=== PATIENT | female | born 1985 | race Two or more races ===

== ENCOUNTER 2017-01-28 09:30 | Emergency (ER) | payer OTHER ==
[2017-01-28 09:39] VITALS: TEMP 98; BMI 40.0
[2017-01-28] MEDS ORDERED: SODIUM CHLORIDE 1,000 ML IV STA ×2 (10:08→11:49)
[2017-01-28] MEDS ORDERED: ONDANSETRON 4 MG/2 ML VIAL IVPUSH ONE (10:08)
--- NOTE | 2017-01-28 10:08 | PDOC ---
History of Present Illness - General History Source: Patient Exam Limitations: No Limitations - History of Present Illness Initial Comments: 01/28/17 10:16 The patient is a 31 year old female, with a significant past medical history of HTN (on meds), who presents to the emergency department with abdominal pain, nausea, vomit and diarrhea for the past 2 days. She states that this past Saturday she attended a BBQ and started vomiting that same night. She reports that her abdominal pain is localized on the mid epigastric region, ranging from mild to moderate, she denies any radiation or modifying factors. She states that she has had multiple episodes of vomit that are nonbilious and nonbloody in nature. She also states that she had 1 episode of diarrhea today that was nonbloody in nature. The patient denies chest pain, shortness of breath, headache and dizziness. Denies fever, chills, and constipation. Denies dysuria, frequency, urgency and hematuria. LMP: 01/2017 Allergies: None Past surgical history: None reported Social history: Cigarette use (1 pack a week) <Shady Carballo - Last Filed: 01/28/17 13:42> - General History Source: Patient, Old Records Exam Limitations: No Limitations <Alisa Linton - Last Filed: 01/28/17 13:58> - General Chief Complaint: Vomiting/Diarrhea Stated Complaint: VOMITING Time Seen by Provider: 01/28/17 10:01 Past History <Shady Carballo - Last Filed: 01/28/17 13:42> - Past Medical History Asthma: Yes HTN: Yes - Immunization History Immunization Up to Date: Yes - Psycho/Social/Smoking Cessation Hx Anxiety: No Suicidal Ideation: No Smoking Status: Yes Smoking History: Current every day smoker Have you smoked in the past 12 months: Yes Number of Cigarettes Smoked Daily: 2 Information on smoking cessation initiated: Yes 'Breaking Loose' booklet given: 01/28/17 Hx Alcohol Use: No Drug/Substance Use Hx: No Substance Use Type: None <Alisa Linton - Last Filed: 01/28/17 13:58> - Past Medical History Allergies/Adverse Reactions: Allergies Allergy/AdvReac Type Severity Reaction Status Date / Time Penicillins AdvReac Severe Rash Verified 01/28/17 09:35 Home Medications: Ambulatory Orders Amlodipine Besylate 10 mg PO DAILY 01/28/17 Hydrochlorothiazide [Hctz -] 0 mg PO DAILY 01/28/17 Review of Systems - Review of Systems Able to Perform ROS?: Yes Comments:: 01/28/17 10:16 GENERAL/CONSTITUTIONAL: No fever or chills. No weakness. HEAD, EYES, EARS, NOSE AND THROAT: No change in vision. No ear pain or discharge. No sore throat. CARDIOVASCULAR: No chest pain or shortness of breath RESPIRATORY: No cough, wheezing, or hemoptysis. GASTROINTESTINAL: (+) Abdominal pain, Nausea, vomiting, diarrhea. No constipation. GENITOURINARY: No dysuria, frequency, or change in urination. MUSCULOSKELETAL: No joint or muscle swelling or pain. No neck or back pain. SKIN: No rash NEUROLOGIC: No headache, vertigo, loss of consciousness, or change in strength/ sensation. ENDOCRINE: No increased thirst. No abnormal weight change HEMATOLOGIC/LYMPHATIC: No anemia, easy bleeding, or history of blood clots. ALLERGIC/IMMUNOLOGIC: No hives or skin allergy. <Shady Carballo - Last Filed: 01/28/17 13:42> *Physical Exam - Vital Signs Last Vital Signs Temp Pulse Resp BP Pulse Ox 98.0 F 78 18 156/106 100 01/28/17 09:36 01/28/17 09:36 01/28/17 09:36 01/28/17 09:36 01/28/17 09:36 - Physical Exam Comments: 01/28/17 10:16 GENERAL: Awake, alert, and fully oriented, in no acute distress HEAD: No signs of trauma, normocephalic, atraumatic EYES: PERRLA, EOMI, sclera anicteric, conjunctiva clear ENT: Auricles normal inspection, hearing grossly normal, nares patent, oropharynx clear without exudates. Moist mucosa NECK: Normal ROM, supple, no lymphadenopathy, JVD, or masses LUNGS: No distress, speaks full sentences, clear to auscultation bilaterally HEART: Regular rate and rhythm, normal S1 and S2, no murmurs, rubs or gallops, peripheral pulses normal and equal bilaterally. ABDOMEN: (+) Epigastric tenderness, right upper quadrant tenderness with no rebound or guarding. Obese abdomen. Soft, normoactive bowel sounds. No masses EXTREMITIES: Normal inspection, Normal range of motion, no edema. No clubbing or cyanosis. NEUROLOGICAL: Cranial nerves II through XII grossly intact. Normal speech, normal gait, no focal sensorimotor deficits SKIN: Warm, Dry, normal turgor, no rashes or lesions noted. <Shady Carballo Whit - Last Filed: 01/28/17 13:42> - Vital Signs Last Vital Signs Temp Pulse Resp BP Pulse Ox 98.0 F 78 18 156/106 100 01/28/17 09:36 01/28/17 09:36 01/28/17 09:36 01/28/17 09:36 01/28/17 09:36 <Alisa Linton - Last Filed: 01/28/17 13:58> ED Treatment Course - LABORATORY CBC & Chemistry Diagram: 01/28/17 10:21 01/28/17 10:21 - RADIOLOGY Radiograph Interpretation: 01/28/17 13:42 Abdominal ultrasound Reviewed by: Dr. Jesús Frazier Impression: Mild hepatomegaly, otherwise normal abdominal sonogram. <DashawncarmeloShady - Last Filed: 01/28/17 13:42> - LABORATORY CBC & Chemistry Diagram: 01/28/17 10:21 01/28/17 10:21 <Alisa Linton - Last Filed: 01/28/17 13:58> Medical Decision Making - Medical Decision Making 01/28/17 10:09 31-year-old female with history of hypertension presents to the emergency Department with complaints of 2 day history of epigastric pain, nausea and vomiting and diarrhea times one this morning. Differential diagnosis includes but is not limited to: Acute gastroenteritis, colitis, pancreatitis, cholelithiasis/acute cholecystitis, dehydration, electrolyte abnormality, toxic/ metabolic derangement. Plan: 1. Labs 2. Antiemetics 3. IV fluids for hydration 4. Observe and reevaluate 01/28/17 13:53 Addendum: The labs were reviewed and are noted in the EMR. The patient was given IV fluids and antiemetics and feels improved. I have discussed the patient 's test results with her. She wants to go home. I did advise the patient to follow-up with primary care physician by the end of the week. I have also advised the patient to return to the emergency department her symptoms persist, worsen, or new symptoms arise. <Alisa Linton - Last Filed: 01/28/17 13:58> *DC/Admit/Observation/Transfer - Attestations Scribe Attestion: 01/28/17 10:16 Documentation prepared by Shady Carballo, acting as medical dosimetrist for Alisa Linton MD <Shady Carballo - Last Filed: 01/28/17 13:42> - Discharge Dispostion Admit: No - Attestations Physician Attestion: 01/28/17 10:10 I, Dr. Alisa Linton, attest that the scribes documentation that appears above has been prepared under my direction and personally reviewed by me in its entirety. I confirmed that the note above accurately reflects all work, treatment, procedures, and medical decision-making performed by me. <Alisa Linton - Last Filed: 01/28/17 13:58> Diagnosis at time of Disposition: Nausea and vomiting, Epigastric pain - Discharge Dispostion Disposition: HOME Condition at time of disposition: Stable - Referrals Referrals: Alvin De La Torre MD [Primary Care Provider] - - Patient Instructions Printed Discharge Instructions: DI for Abdominal Pain-Adult Additional Instructions: Follow up with your primary care physician within the next week and return to the emergency department if your symptoms persist, worsen, or new symptoms arise.
[2017-01-28] MEDS ORDERED: ONDANSETRON 4 MG/2 ML VIAL ONE (10:23)
[2017-01-28 10:29] LABS: EOSINOPHIL 1.2 % (0-4.5); MCH 28.4 pg (25.7-33.7); MCHC 33.2 g/dl (32.0-36.0); MEAN CELL VOLUME 85.5 fl (80-96); MEAN PLT VOLUME 8.8 fl (7.5-11.1); NEUTROPHILS 69.4 % (42.8-82.8); PLATELET COUNT 213 K/MM3 (134-434); RDW 13.7 % (11.6-15.6); WHITE BLOOD COUNT 8.8 K/mm3 (4.0-10.0)
[2017-01-28 10:52] LABS: URINE APPEARANCE CLEAR; URINE BILIRUBIN NEGATIVE (NEGATIVE); URINE COLOR LTYELLOW; URINE GLUCOSE (UA) NEGATIVE (NEGATIVE); URINE KETONE NEGATIVE (NEGATIVE); URINE NITRITE NEGATIVE (NEGATIVE); URINE PROTEIN NEGATIVE (NEGATIVE); URINE UROBILINOGEN NEGATIVE E.U./dl (0.2-1.0)
[2017-01-28 10:54] LABS: URINE BLOOD 2+ (NEGATIVE); URINE LEUK ESTERASE 1+ (NEGATIVE)
[2017-01-28 10:56] LABS: ALBUMIN 3.4 g/dl (3.4-5.0); ALK PHOS 75 U/L (45-117); ANION GAP 6 (8-16); BILIRUBIN,TOTAL 0.6 mg/dL (0.2-1.0); CALCIUM 8.9 mg/dL (8.5-10.1); CO2 26 mmol/L (21-32); CREATININE 0.7 mg/dL (0.55-1.02); GLUCOSE,RANDOM 87 mg/dL (74-106); PHOSPHOROUS 3.1 mg/dL (2.5-4.9); SGOT/AST 15 U/L (15-37); SGPT/ALT 26 U/L (12-78); TOT PROT 6.6 g/dl (6.4-8.2)
[2017-01-28 11:01] LABS: URINE MUCUS RARE; URINE RBC 3 /hpf (0-3); URINE WBC 5 /hpf (3-5)
[2017-01-28] MEDS ORDERED: FAMOTIDINE 20 MG/50 ML IVPB 50 ML IVPB ONE ×2 (11:49→12:06)
[2017-01-28 14:12] VITALS: BP 151/97; PULSE 64
== END 2017-01-28 14:12 | disposition home or self-care (01) ==
LOC: JER 09:30
PROC: 3E0337Z Introduction of Electrolytic and Water Balance Substance into Peripheral Vein, Percutaneous Approach (ICD-10-PCS; principal; 2017-01-28)
PROC: 3E033GC Introduction of Other Therapeutic Substance into Peripheral Vein, Percutaneous Approach (ICD-10-PCS; 2017-01-28)
DX: R10.13 Epigastric pain (principal); I10 Essential (primary) hypertension
CPT/HCPCS: 36415; 76700-TC; 80053; 81003; 81015; 83690; 83735; 84100; 84703; 85025; 96361; 96365; 96375; 99282-25

== ENCOUNTER 2017-02-20 18:03 | Emergency (ER) | payer SELFPAY ==
[2017-02-20 18:09] VITALS: BMI 40.0
--- NOTE | 2017-02-20 18:13 | PDOC ---
History of Present Illness - General Chief Complaint: Back Pain Stated Complaint: PAIN Time Seen by Provider: 02/20/17 18:12 - History of Present Illness Initial Comments: 02/20/17 18:19 Patient is a 31-year-old female past medical history of anxiety, hypertension presents to the emergency department today complaining of right upper back pain since this morning. She rates the pain a 10 out of 10. She used icy hot today which helps. She states that the pain is worse with movement and it feels like someone is stabbing her in the back. She said he radiates to her chest and she feels short of breath. The pain does not radiate to the left side. Denies fever , chills, nausea, vomiting, palpitations, edema, wheezing, frequency urgency and dysuria. Past History - Travel Traveled outside of the country in the last 30 days: No Close contact w/someone who was outside of country & ill: No - Past Medical History Allergies/Adverse Reactions: Allergies Allergy/AdvReac Type Severity Reaction Status Date / Time Penicillins AdvReac Severe Rash Verified 02/20/17 18:07 Home Medications: Ambulatory Orders Amlodipine Besylate 10 mg PO DAILY 01/28/17 Hydrochlorothiazide [Hctz -] 0 mg PO DAILY 01/28/17 Valerian Root [Valerian] 530 mg PO ASDIR 02/20/17 Asthma: Yes HTN: Yes - Immunization History Immunization Up to Date: Yes - Psycho/Social/Smoking Cessation Hx Anxiety: No Suicidal Ideation: No Smoking Status: Yes Smoking History: Never smoked Have you smoked in the past 12 months: Yes Number of Cigarettes Smoked Daily: 2 Information on smoking cessation initiated: No 'Breaking Loose' booklet given: 01/28/17 Hx Alcohol Use: No Drug/Substance Use Hx: No Substance Use Type: None Review of Systems - Review of Systems Able to Perform ROS?: Yes Is the patient limited Portuguese proficient: No Constitutional: No: Chills, Fever, Malaise, Weakness Respiratory: Yes: Shortness of Breath. No: Cough, Wheezing Cardiac (ROS): Yes: Chest Pain. No: Lightheadedness, Palpitations ABD/GI: No: Diarrhea, Nausea, Vomiting : No: Burning, Dysuria, Frequency Musculoskeletal: Yes: Back Pain (R upper back), Muscle Pain All Other Systems: Reviewed and Negative *Physical Exam - Vital Signs Last Vital Signs Temp Pulse Resp BP Pulse Ox 98.2 F 77 20 160/100 99 02/20/17 18:05 02/20/17 18:05 02/20/17 18:05 02/20/17 18:05 02/20/17 18:05 - Physical Exam General Appearance: Yes: Nourished, Appropriately Dressed, Obese Neck: positive: Trachea midline, Supple. negative: Tender, Rigid, Decreased range of motion Respiratory/Chest: positive: Lungs Clear, Normal Breath Sounds. negative: Respiratory Distress, Accessory Muscle Use, Rales, Rhonchi, Wheezing Cardiovascular: positive: Regular Rhythm, Regular Rate, S1, S2 (present). negative: Murmur Gastrointestinal/Abdominal: positive: Normal Bowel Sounds, Flat, Soft. negative : Tender, Guarding, Rebound Musculoskeletal: positive: Muscle Spasm (R trapezius, TTP with radiating pain to the chest. Palpable knot). 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 NML intact, Fully Oriented, Alert, Normal Mood/ Affect, Normal Response, Motor Strength 5/5 Heart Score/ECG Review - History History: Slightly suspicious - Electrocardiogram EKG: Normal - Age Age: </= 45 - Risk Factors Risk Factors Heart Score: Yes Hx Hypertension Based on the list above the patient has:: 1-2 risk factors - Troponin Troponin: </= normal limit - Score Heart Score - Total: 1 ED Treatment Course - LABORATORY CBC & Chemistry Diagram: 02/20/17 18:30 Medical Decision Making - Medical Decision Making 02/20/17 18:31 Patient is a 31-year-old female past medical history of anxiety, hypertension presents to the emergency department today complaining of right upper back pain since this morning. Most likely a muscle spasm, however given the amount of pain she is in and the radiation to the chest we'll rule out cardiac cause. We' ll also obtain urine to rule out stone 1. CMP, UA, Cardiac profile 2. EKG 3. torodol 4. re-evaluate 02/20/17/ 18:42 EKG services in normal sinus rhythm with a rate of 78 bpm QT 380. Normal axis. No acute ST-T wave changes. Overall normal EKG. 02/20/17 19:00 Case discussed with and he Mandy Rooney who accepted signout. Patient will follow up on labs and evaluate her pain.
[2017-02-20] MEDS ORDERED: KETOROLAC TROMETHAMINE 30 MG/1 ML VIAL IM ONE ×2 (18:28→19:37)
[2017-02-20] MEDS ORDERED: KETOROLAC TROMETHAMINE 30 MG/1 ML VIAL ONE ×2 (18:29→19:47)
[2017-02-20 18:49] LABS: URINE APPEARANCE CLOUDY; URINE BILIRUBIN NEGATIVE (NEGATIVE); URINE COLOR YELLOW; URINE GLUCOSE (UA) NEGATIVE (NEGATIVE); URINE KETONE NEGATIVE (NEGATIVE); URINE NITRITE NEGATIVE (NEGATIVE); URINE PROTEIN NEGATIVE (NEGATIVE); URINE UROBILINOGEN NEGATIVE mg/dL (0.2-1.0)
[2017-02-20 18:50] LABS: URINE BLOOD 2+ (NEGATIVE); URINE LEUK ESTERASE 3+ (NEGATIVE)
[2017-02-20 19:05] LABS: ALBUMIN 3.7 g/dl (3.4-5.0); ANION GAP 6 (8-16); BILIRUBIN,TOTAL 0.5 mg/dL (0.2-1.0); CALCIUM 8.5 mg/dL (8.5-10.1); CO2 24 mmol/L (21-32); CREATININE 0.7 mg/dL (0.55-1.02); GLUCOSE,RANDOM 81 mg/dL (74-106); SGOT/AST 12 U/L (15-37); SGPT/ALT 18 U/L (12-78)
[2017-02-20 19:06] LABS: ALK PHOS 79 U/L (45-117); TROPONIN I < 0.02 ng/ml (0.00-0.05)
[2017-02-20 19:22] LABS: URINE BACTERIA RARE /hpf (NONE SEEN); URINE MUCUS RARE; URINE RBC 16 /hpf (0-3); URINE WBC 42 /hpf (3-5)
[2017-02-20 19:25] VITALS: BP 158/70; PULSE 68; TEMP 98.3
--- NOTE | 2017-02-20 19:43 | PDOC ---
*Physical Exam - Vital Signs Last Vital Signs Temp Pulse Resp BP Pulse Ox 98.3 F 68 20 158/70 98 02/20/17 18:53 02/20/17 18:53 02/20/17 18:53 02/20/17 18:53 02/20/17 18:53 - Physical Exam Comments: 02/20/17 19:38 Sign-out received from outgoing ER provider Nirav. Pt interviewed and examined. Ancillary studies reviewed. Awaiting labs. Patient reassessed after administration of 30 mg IM Toradol, continues to complain of "some pain" to right upper back. additional 30 mg toradol given ED Treatment Course - LABORATORY CBC & Chemistry Diagram: 02/20/17 18:30 - ADDITIONAL ORDERS Additional order review: Laboratory Results 02/20/17 02/20/17 02/20/17 18:30 18:30 18:30 Sodium 139 Potassium 4.1 Chloride 109 H Carbon Dioxide 24 Anion Gap 6 L BUN 13 Creatinine 0.7 Creat Clearance w eGFR > 60 Random Glucose 81 Calcium 8.5 Total Bilirubin 0.5 AST 12 L ALT 18 D Alkaline Phosphatase 79 Creatine Kinase 153 Troponin I < 0.02 Total Protein 7.0 Albumin 3.7 Urine Color Urine Appearance Urine pH Urine Protein Urine Glucose (UA) Urine Ketones Urine Blood Urine Nitrite Urine Bilirubin Urine Urobilinogen Ur Leukocyte Esterase Urine RBC Urine WBC Ur Epithelial Cells Urine Bacteria Urine Mucus Urine HCG, Qual Negative 02/20/17 18:30 Sodium Potassium Chloride Carbon Dioxide Anion Gap BUN Creatinine Creat Clearance w eGFR Random Glucose Calcium Total Bilirubin AST ALT Alkaline Phosphatase Creatine Kinase Troponin I Total Protein Albumin Urine Color Yellow Urine Appearance Cloudy Urine pH 5.0 Urine Protein Negative Urine Glucose (UA) Negative Urine Ketones Negative Urine Blood 2+ H Urine Nitrite Negative Urine Bilirubin Negative Urine Urobilinogen Negative Ur Leukocyte Esterase 3+ H D Urine RBC 16 Urine WBC 42 Ur Epithelial Cells Many Urine Bacteria Rare Urine Mucus Rare Urine HCG, Qual - Medications Given in the ED: ED Medications Discontinued Medications Generic Name Dose Route Start Last Admin Trade Name Freq PRN Reason Stop Dose Admin Ketorolac Tromethamine 30 mg 02/20/17 18:28 02/20/17 18:36 Toradol Injection - IM 02/20/17 18:29 30 mg ONCE ONE Administration *DC/Admit/Observation/Transfer Diagnosis at time of Disposition: UTI (urinary tract infection) Qualifiers: Urinary tract infection type: site unspecified Hematuria presence: without hematuria Qualified Code(s): N39.0 - Urinary tract infection, site not specified Back pain Qualifiers: Back pain location: back pain in other location Chronicity: acute Qualified Code(s): M54.9 - Dorsalgia, unspecified - Discharge Dispostion Disposition: HOME Condition at time of disposition: Stable Admit: No - Prescriptions Prescriptions: Nitrofurantoin Monohyd/M-Cryst [Macrobid -] 100 mg PO BID #14 capsule Naproxen [Naprosyn -] 500 mg PO BID #14 tablet Diazepam [Valium] 5 mg PO HS PRN #7 tablet MDD 1 PRN Reason: Muscle Spasms - Referrals Referrals: Alvin De La Torre MD [Primary Care Provider] - Henrry Hamm MD [Staff Physician] - - Patient Instructions Printed Discharge Instructions: DI for Back Spasm Additional Instructions: Please take medications as prescribed. As discussed, do NOT drive or operate machinery while taking Valium. Stop taking any other medications at home. Follow up with orthopedics (referral provided) within the next week if symptoms persist. If you experience any shortness of breath, chest pain, palpitations, fever, vomiting, or any new or worsening symptoms, please return to the ER.
--- NOTE | 2017-02-21 13:09 | EKG ---
Test Reason : Blood Pressure : / mmHG Vent. Rate : 078 BPM Atrial Rate : 078 BPM P-R Int : 166 ms QRS Dur : 076 ms QT Int : 380 ms P-R-T Axes : 019 022 018 degrees QTc Int : 433 ms NORMAL SINUS RHYTHM MINIMAL VOLTAGE CRITERIA FOR LVH, MAY BE NORMAL VARIANT BORDERLINE ECG WHEN COMPARED WITH ECG OF 11-APR-2010 09:48, NO SIGNIFICANT CHANGE WAS FOUND Confirmed by CHILANGO CHANDLER MD ([id number]) on 02/21/2017 1:08:57 PM Referred By: Confirmed By:CHILANGO CHANDLER MD
== END 2017-02-20 20:57 | disposition home or self-care (01) ==
LOC: JER 18:03
PROC: 3E0233Z Introduction of Anti-inflammatory into Muscle, Percutaneous Approach (ICD-10-PCS; principal; 2017-02-20)
DX: N39.0 Urinary tract infection, site not specified (principal); M54.9 Dorsalgia, unspecified; I10 Essential (primary) hypertension; F41.9 Anxiety disorder, unspecified; J45.909 Unspecified asthma, uncomplicated; Z72.0 Tobacco use
CPT/HCPCS: 36415; 80053; 81003; 81015; 82550; 82553; 84484; 84703; 87086; 93005; 93010; 99283-25

== ENCOUNTER 2017-04-10 14:22 | Emergency (ER) | payer OTHER ==
[2017-04-10 14:35] VITALS: PULSE 92; TEMP 99.2; BMI 38.2
[2017-04-10] MEDS ORDERED: KETOROLAC TROMETHAMINE 60 MG/2 ML VIAL IM ONE (15:12)
[2017-04-10] MEDS ORDERED: KETOROLAC TROMETHAMINE 60 MG/2 ML VIAL ONE (15:16)
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
[2017-04-10 16:27] VITALS: BP 143/92
== END 2017-04-10 16:51 | disposition home or self-care (01) ==
LOC: JERFT 14:22
PROC: 3E0233Z Introduction of Anti-inflammatory into Muscle, Percutaneous Approach (ICD-10-PCS; principal; 2017-04-10)
DX: R52 Pain, unspecified (principal); V58.6XXA Passenger in pick-up truck or van injured in noncollision transport accident in traffic accident, initial encounter; Y92.414 Local residential or business street as the place of occurrence of the external cause; Y93.89 Activity, other specified; Y99.8 Other external cause status
CPT/HCPCS: 71020-TC; 72050-TC; 72100-TC; 73590-TC-LT; 73610-TC-LT; 73630-TC-LT; 84703; 99281-25

== ENCOUNTER 2018-01-14 16:50 | Emergency (ER) | payer OTHER ==
[2018-01-14 17:09] VITALS: PULSE 88; TEMP 98.4; BMI 40.9
--- NOTE | 2018-01-14 17:13 | PDOC ---
Rapid Medical Evaluation Chief Complaint: Headache Time Seen by Provider: 01/14/18 17:05 Medical Evaluation: Allergies Allergy/AdvReac Type Severity Reaction Status Date / Time Penicillins AdvReac Severe Rash Verified 01/14/18 17:05 01/14/18 17:05 I have performed a brief in-person evaluation of this patient. The patient presents with a chief complaint of: headache since Saturday - has some visual changes, taking Motrin and HTN med, Tylenol w2ith no resolve. States is " the worst headache ever had" Pertinent physical exam findings: squinting eyes/ photophobic , I have ordered the following: EKG, CBC, CMP, PT/INR/ UA/ UCG The patient will proceed to the ED for further evaluation. 01/14/18 17:13 01/14/18 17:15
[2018-01-14] MEDS ORDERED: METOCLOPRAMIDE HCL INJECTION 10 MG/2 ML VIAL IVPUSH ONE (17:16)
[2018-01-14] MEDS ORDERED: KETOROLAC TROMETHAMINE 30 MG/1 ML VIAL IVPUSH ONE (17:17)
[2018-01-14] MEDS ORDERED: METOCLOPRAMIDE HCL INJECTION 10 MG/2 ML VIAL ONE (17:35)
[2018-01-14] MEDS ORDERED: KETOROLAC TROMETHAMINE 30 MG/1 ML VIAL ONE (17:35)
--- NOTE | 2018-01-14 18:00 | PDOC ---
History of Present Illness - General History Source: Patient Exam Limitations: No Limitations - History of Present Illness Initial Comments: 01/14/18 20:28 The patient is a 32 year old morbidly obese female with a significant PMH of headaches who presents to the emergency department with a headache for the past 3 days with associated high blood pressure, sore throat, one episode of nonbloody nonbilious vomit, and blurry vision. The patient has been taking motrin and hypertension medications with no relief. The patient states she had a history of headaches back in 2011 for which she had significant work up at the time but has not followed up with the neurologist (Dr. Pitts) since. The patient's blood pressure returned to 127/90 here in the ER. The patient denies chest pain, shortness of breath and dizziness. Denies fever, chills, nausea, diarrhea and constipation. Denies dysuria, frequency, urgency and hematuria. Allergies: penicillins Past surgical history: None reported. Social history: No reported alcohol, drug, or cigarette use. PCP: Dr. Neal <Courtney Roblero - Last Filed: 01/14/18 20:28> <Stephanie Samano - Last Filed: 01/14/18 22:19> - General Chief Complaint: Headache Stated Complaint: HEADACHE Time Seen by Provider: 01/14/18 17:05 Past History <Courtney Roblero - Last Filed: 01/14/18 20:28> - Past Medical History Asthma: Yes (COPD) HTN: Yes - Immunization History Immunization Up to Date: Yes - Suicide/Smoking/Psychosocial Hx Smoking Status: Yes Smoking History: Current every day smoker Have you smoked in the past 12 months: Yes Number of Cigarettes Smoked Daily: 5 Information on smoking cessation initiated: No 'Breaking Loose' booklet given: 01/28/17 Hx Alcohol Use: No Drug/Substance Use Hx: No Substance Use Type: None <Stephanie Samano - Last Filed: 01/14/18 22:19> - Past Medical History Allergies/Adverse Reactions: Allergies Allergy/AdvReac Type Severity Reaction Status Date / Time Penicillins AdvReac Severe Rash Verified 01/14/18 17:05 Home Medications: Ambulatory Orders Amlodipine Besylate 10 mg PO DAILY 01/28/17 Hydrochlorothiazide [Hctz -] 0 mg PO DAILY 01/28/17 Cyclobenzaprine HCl [Flexeril -] 5 mg PO TID PRN #21 tablet 04/10/17 Naproxen [Naprosyn -] 500 mg PO BID #21 tablet 04/10/17 Review of Systems - Review of Systems Able to Perform ROS?: Yes Comments:: 01/14/18 20:35 CONSTITUTIONAL: Absent: fever, no chills, no fatigue EYES: Absent: visual changes ENT: Absent: ear pain, no sore throat CARDIOVASCULAR: Absent: chest pain, no palpitations RESPIRATORY: Absent: cough, no SOB GI: Absent: abdominal pain, no nausea, no vomiting, no constipation, no diarrhea GENITOURINARY: Absent: dysuria, no frequency, no hematuria MUSKULOSKELETAL: Absent: back pain, no arthralgia, no myalgia SKIN: Absent: rash NEURO: Absent: Present: headache. <Courtney Roblero - Last Filed: 01/14/18 20:28> *Physical Exam - Vital Signs Last Vital Signs Temp Pulse Resp BP Pulse Ox 98.4 F 88 18 127/91 100 01/14/18 17:04 01/14/18 17:04 01/14/18 17:04 01/14/18 19:18 01/14/18 17:04 - Physical Exam Comments: 01/14/18 20:35 GENERAL: Well-appearing, well-nourished. No apparent distress. HEENT: Normocephalic, atraumatic. PERRL, EOM intact. No bruits on the neck. CARDIOVASCULAR: Normal S1, S2. Regular rate and rhythm. PULMONARY: Clear to auscultation bilaterally. ABDOMEN: (+) [place] abdomen. Soft, non-tender. EXTREMITIES: Normal ROM in all four extremities. No gross deformities. SKIN: Warm, dry. No rash NEUROLOGICAL: No focal neurological deficits. 5 out of 5 motor strength x4 extremities. No gross sensory deficits. [id number]-[id number] is intact. No pronator drift. No numbness or tingling. No facial droop. No slurred speech. Ambulating with ease. <Courtney Roblero - Last Filed: 01/14/18 20:28> - Vital Signs Last Vital Signs Temp Pulse Resp BP Pulse Ox 98.4 F 88 18 170/110 100 01/14/18 17:04 01/14/18 17:04 01/14/18 17:04 01/14/18 17:04 01/14/18 17:04 <Stephanie Samano - Last Filed: 01/14/18 22:19> ED Treatment Course - LABORATORY CBC & Chemistry Diagram: 01/14/18 17:11 01/14/18 17:11 - ADDITIONAL ORDERS Additional order review: Laboratory Results 01/14/18 01/14/18 01/14/18 17:11 17:11 17:11 PT with INR 12.10 INR 1.07 Sodium 140 Potassium 3.7 Chloride 106 Carbon Dioxide 26 Anion Gap 8 BUN 11 Creatinine 0.8 Creat Clearance w eGFR > 60 Random Glucose 130 H Calcium 8.8 Total Bilirubin 0.2 D AST 17 ALT 27 Alkaline Phosphatase 101 Total Protein 7.3 Albumin 3.7 Urine Color Urine Appearance Urine pH Ur Specific [place] Urine Protein Urine Glucose (UA) Urine Ketones Urine Blood Urine Nitrite Urine Bilirubin Urine Urobilinogen Ur Leukocyte Esterase Urine WBC (Auto) Urine RBC (Auto) Ur Epithelial Cells Urine Mucus Urine HCG, Qual Negative 01/14/18 17:11 PT with INR INR Sodium Potassium Chloride Carbon Dioxide Anion Gap BUN Creatinine Creat Clearance w eGFR Random Glucose Calcium Total Bilirubin AST ALT Alkaline Phosphatase Total Protein Albumin Urine Color Dkyellow Urine Appearance Cloudy Urine pH 5.0 Ur Specific [place] 1.021 Urine Protein 1+ H Urine Glucose (UA) Negative Urine Ketones Trace H Urine Blood 2+ H Urine Nitrite Negative Urine Bilirubin Negative Urine Urobilinogen Negative Ur Leukocyte Esterase 2+ H Urine WBC (Auto) 51 Urine RBC (Auto) 11 Ur Epithelial Cells Many Urine Mucus Moderate Urine HCG, Qual 01/14/18 18:23 Group A Strep Rapid Antigen - Final Throat 01/14/18 17:11 RBC 4.82 MCV 84.7 MCHC 32.6 RDW 13.7 MPV 8.8 Neutrophils % 69.0 Lymphocytes % 23.6 Monocytes % 5.1 Eosinophils % 1.6 Basophils % 0.7 - Medications Given in the ED: ED Medications Discontinued Medications Generic Name Dose Route Start Last Admin Trade Name Freq PRN Reason Stop Dose Admin Diphenhydramine HCl 25 mg 01/14/18 17:16 01/14/18 17:58 Benadryl Injection - IVPB 01/14/18 17:17 25 mg ONCE ONE Administration Ketorolac Tromethamine 30 mg 01/14/18 17:17 01/14/18 19:11 Toradol Injection - IVPUSH 01/14/18 17:18 30 mg ONCE ONE Administration Metoclopramide HCl 10 mg 01/14/18 17:16 01/14/18 17:58 Reglan Injection - IVPUSH 01/14/18 17:17 10 mg ONCE ONE Administration Ondansetron HCl 4 mg 01/14/18 18:33 01/14/18 19:11 Zofran Injection IVPUSH 01/14/18 18:34 4 mg ONCE ONE Administration <Courtney Roblero - Last Filed: 01/14/18 20:28> - LABORATORY CBC & Chemistry Diagram: 01/14/18 17:11 01/14/18 17:11 - Medications Given in the ED: ED Medications Discontinued Medications Generic Name Dose Route Start Last Admin Trade Name Wilianq PRN Reason Stop Dose Admin Diphenhydramine HCl 25 mg 01/14/18 17:16 01/14/18 17:58 Benadryl Injection - IVPB 01/14/18 17:17 25 mg ONCE ONE Administration Metoclopramide HCl 10 mg 01/14/18 17:16 01/14/18 17:58 Reglan Injection - IVPUSH 01/14/18 17:17 10 mg ONCE ONE Administration <Stephanie Samano - Last Filed: 01/14/18 22:19> Medical Decision Making - Medical Decision Making 01/14/18 22:17 32-year-old female with a history of hypertension, presented with 3 days of headache, nausea, sore throat On exam, she has no gross focal neural deficits. She was initially hypertensive but after her Reglan her headache resolved and her systolic blood pressure came down to 120s and she requested discharge home no focal neuro deficits -pt encouraged to f/u with neurology and given referral to Dr Landon <Stephanie Samano - Last Filed: 01/14/18 22:19> *DC/Admit/Observation/Transfer - Attestations Scribe Attestion: 01/14/18 20:36 Documentation prepared by Courtney Roblero, acting as medical transcription for Stephanie Samano MD. <Courtney Roblero - Last Filed: 01/14/18 20:28> <Stephanie Samano - Last Filed: 01/14/18 22:19> Diagnosis at time of Disposition: High blood pressure Qualifiers: Hypertension type: essential hypertension Qualified Code(s): I10 - Essential ( primary) hypertension Headache Qualifiers: Headache type: tension-type Headache chronicity pattern: unspecified pattern Intractability: not intractable Qualified Code(s): G44.209 - Tension-type headache, unspecified, not intractable - Discharge Dispostion Disposition: HOME Condition at time of disposition: Stable - Referrals Referrals: Davidson Neal MD [Primary Care Provider] - Kemal Landon MD [Staff Physician] - - Patient Instructions Printed Discharge Instructions: DI for Headache Additional Instructions: please follow up with the neurologist for your headaches Continue to take your blood pressure medication return for any worsening symptoms
[2018-01-14 18:02] LABS: BASO % 0.7 % (0-2.0); EOS % 1.6 % (0-4.5); HEMATOCRIT 40.8 % (32.4-45.2); HEMOGLOBIN 13.3 GM/dL (10.7-15.3); LYMPH % 23.6 % (8-40); MCH 27.6 pg (25.7-33.7); MCHC 32.6 g/dl (32.0-36.0); MEAN CELL VOLUME 84.7 fl (80-96); MEAN PLT VOLUME 8.8 fl (7.5-11.1); MONO % 5.1 % (3.8-10.2); PLATELET COUNT 275 K/MM3 (134-434); RBC 4.82 M/mm3 (3.60-5.2); RDW 13.7 % (11.6-15.6); WHITE BLOOD COUNT 11.4 K/mm3 (4.0-10.0)
[2018-01-14 18:23] LABS: INR 1.07 (0.82-1.09); PROTHROMBIN TIME (PATIENT) 12.1 SEC (9.7-13.0)
[2018-01-14] MEDS ORDERED: ONDANSETRON 4 MG/2 ML VIAL IVPUSH ONE (18:33)
[2018-01-14 18:49] LABS: ALBUMIN 3.7 g/dl (3.4-5.0); ALK PHOS 101 U/L (45-117); ANION GAP 8 (8-16); BILIRUBIN,TOTAL 0.2 mg/dL (0.2-1.0); BLOOD UREA NITROGEN 11 mg/dL (7-18); CALCIUM 8.8 mg/dL (8.5-10.1); CHLORIDE 106 mmol/L (98-107); CO2 26 mmol/L (21-32); CREATININE 0.8 mg/dL (0.55-1.02); GLUCOSE,RANDOM 130 mg/dL (74-106); POTASSIUM 3.7 mmol/L (3.5-5.1); SGOT/AST 17 U/L (15-37); SGPT/ALT 27 U/L (12-78); SODIUM 140 mmol/L (136-145); TOT PROT 7.3 g/dl (6.4-8.2)
[2018-01-14 18:58] LABS: URINE APPEARANCE CLOUDY; URINE BILIRUBIN NEGATIVE (<2.0 mg/dL); URINE BLOOD 2+ (NEGATIVE); URINE COLOR DKYELLOW; URINE GLUCOSE (UA) NEGATIVE (NEGATIVE); URINE KETONE TRACE (NEGATIVE); URINE NITRITE NEGATIVE (NEGATIVE); URINE UROBILINOGEN NEGATIVE mg/dL (0.2-1.0)
[2018-01-14] MEDS ORDERED: ONDANSETRON 4 MG/2 ML VIAL ONE (19:12)
[2018-01-14 19:15] LABS: URINE LEUK ESTERASE 2+ (NEGATIVE); URINE PROTEIN 1+ (NEGATIVE)
[2018-01-14 19:18] VITALS: BP 127/91
[2018-01-14 20:00] LABS: EPI CELLS MANY /HPF (FEW); URINE MUCUS MODERATE
--- NOTE | 2018-01-15 11:30 | EKG ---
Test Reason : Blood Pressure : / mmHG Vent. Rate : 081 BPM Atrial Rate : 081 BPM P-R Int : 134 ms QRS Dur : 072 ms QT Int : 354 ms P-R-T Axes : 021 049 023 degrees QTc Int : 411 ms POOR DATA QUALITY, INTERPRETATION MAY BE ADVERSELY AFFECTED NORMAL SINUS RHYTHM NORMAL ECG WHEN COMPARED WITH ECG OF 20-FEB-2017 18:53, NO SIGNIFICANT CHANGE WAS FOUND Confirmed by MINH REDDY, PRINCESS ([id number]) on 01/15/2018 11:30:32 AM Referred By: Confirmed By:PRINCESS WILKINSON MD
== END 2018-01-14 20:00 | disposition home or self-care (01) ==
LOC: JER 16:50
PROC: 3E0333Z Introduction of Anti-inflammatory into Peripheral Vein, Percutaneous Approach (ICD-10-PCS; principal; 2018-01-14)
PROC: 3E033GC Introduction of Other Therapeutic Substance into Peripheral Vein, Percutaneous Approach (ICD-10-PCS; 2018-01-14)
PROC: 3E033GC Introduction of Other Therapeutic Substance into Peripheral Vein, Percutaneous Approach (ICD-10-PCS; 2018-01-14)
PROC: 3E033GC Introduction of Other Therapeutic Substance into Peripheral Vein, Percutaneous Approach (ICD-10-PCS; 2018-01-14)
DX: I10 Essential (primary) hypertension (principal); G44.209 Tension-type headache, unspecified, not intractable
CPT/HCPCS: 36415; 80053; 81003; 81015; 84703; 85025; 85610; 87070; 87086; 87430; 93005; 93010; 96374; 96375; 99283-25

== ENCOUNTER 2018-08-20 05:40 | Emergency (ER) | payer OTHER ==
[2018-08-20 06:23] VITALS: PULSE 87; TEMP 97.6; BMI 38.9
--- NOTE | 2018-08-20 07:56 | PDOC ---
"History of Present Illness - History of Present Illness Initial Comments: The patient is a 32 year old female, with a significant PMH of asthma, HTN, and headaches, who presents to the emergency department today complaining of left lower mandibular wisdom tooth pain for 2 days. Patient notes she began experiencing wisdom tooth pain last night, which affected her sleep through the night. She reports taking tylenol, motrin, and excedrin (headaches) without any relief. Patient notes the pain is getting progressively worse, which prompted her visit to the ED today. The patient denies chest pain, shortness of breath, headache and dizziness. Denies fever, chills, nausea, vomit, diarrhea and constipation. Denies dysuria, frequency, urgency and hematuria. Allergies: Penicillins Past surgical history: None reported Social history: No reported PCP: Dr. Neal 08/20/18 08:27 <Xena Meyer - Last Filed: 08/20/18 08:27> - General History Source: Patient Exam Limitations: No Limitations <Sheba Wyatt - Last Filed: 08/22/18 09:32> - General Chief Complaint: Toothache Stated Complaint: TOOTHACHE Time Seen by Provider: 08/20/18 07:21 Past History <Xena Meyer - Last Filed: 08/20/18 08:27> - Past Medical History Asthma: Yes (COPD) HTN: Yes - Immunization History Immunization Up to Date: Yes - Suicide/Smoking/Psychosocial Hx Smoking Status: Yes Smoking History: Current every day smoker Have you smoked in the past 12 months: Yes Number of Cigarettes Smoked Daily: 12 Information on smoking cessation initiated: No 'Breaking Loose' booklet given: 01/28/17 Hx Alcohol Use: No Drug/Substance Use Hx: No Substance Use Type: None <Sheba Wyatt - Last Filed: 08/22/18 09:32> - Past Medical History Allergies/Adverse Reactions: Allergies Allergy/AdvReac Type Severity Reaction Status Date / Time Penicillins AdvReac Severe Rash Verified 08/20/18 06:19 Home Medications: Ambulatory Orders Amlodipine Besylate 10 mg PO DAILY 01/28/17 Hydrochlorothiazide [Hctz -] 0 mg PO DAILY 01/28/17 Cyclobenzaprine HCl [Flexeril -] 5 mg PO TID PRN #21 tablet 04/10/17 Naproxen [Naprosyn -] 500 mg PO BID #21 tablet 04/10/17 Clindamycin [Cleocin -] 300 mg PO TID #21 capsule 08/20/18 Oxycodone HCl/Acetaminophen [Percocet 5-325 mg Tablet -] 1 tab PO Q8H PRN #10 tablet MDD 3 08/20/18 Review of Systems - Review of Systems Comments:: GENERAL/CONSTITUTIONAL: No fever or chills. No weakness. HEAD, EYES, EARS, NOSE AND THROAT: +Left lower mandibular wisdom tooth pain. No change in vision. No ear pain or discharge. No sore throat. CARDIOVASCULAR: No chest pain or shortness of breath. RESPIRATORY: No cough, wheezing, or hemoptysis. GASTROINTESTINAL: No nausea, vomiting, diarrhea or constipation. GENITOURINARY: No dysuria, frequency, or change in urination. MUSCULOSKELETAL: No joint or muscle swelling or pain. No neck or back pain. SKIN: No rash NEUROLOGIC: No headache, vertigo, loss of consciousness, or change in strength/ sensation. ENDOCRINE: No increased thirst. No abnormal weight change. HEMATOLOGIC/LYMPHATIC: No anemia, easy bleeding, or history of blood clots. ALLERGIC/IMMUNOLOGIC: No hives or skin allergy. 08/20/18 08:27 <Xena Meyer - Last Filed: 08/20/18 08:27> *Physical Exam - Vital Signs Last Vital Signs Temp Pulse Resp BP Pulse Ox 97.6 F 87 18 179/115 H 97 08/20/18 06:17 08/20/18 06:17 08/20/18 06:17 08/20/18 06:17 08/20/18 06:17 - Physical Exam Comments: GENERAL: The patient is in no acute distress. HEAD: Normal with no signs of trauma. EYES: PERRLA, EOMI, sclera anicteric, conjunctiva clear. ENT: +Left lower mandibular wisdom tooth eruption. No swelling, erythema, or purulence. Ears normal, nares patent, oropharynx clear without exudates. Moist mucous membranes. NECK: Normal range of motion, supple without lymphadenopathy, JVD, or masses. LUNGS: Breath sounds equal, clear to auscultation bilaterally. No wheezes, and no crackles. HEART:Regular rate and rhythm, normal S1 and S2 without murmur, rub or gallop. ABDOMEN: Soft, nontender, normoactive bowel sounds. No guarding, no rebound. No masses palpable. EXTREMITIES: Normal range of motion, no edema. No clubbing or cyanosis. No erythema, or tenderness. NEUROLOGICAL: Cranial nerves II through XII grossly intact. Normal speech. No focal neurological deficits. MUSCULOSKELETAL: Back non-tender to palpation, no CVA tenderness SKIN: Warm, Dry, normal turgor, no rashes or lesions noted. 08/20/18 08:28 <Xena Meyer - Last Filed: 08/20/18 08:27> - Vital Signs Last Vital Signs Temp Pulse Resp BP Pulse Ox 97.6 F 87 18 179/115 H 97 08/20/18 06:17 08/20/18 06:17 08/20/18 06:17 08/20/18 06:17 08/20/18 06:17 <Sheba Wyatt - Last Filed: 08/22/18 09:32> Moderate Sedation - Procedure Monitoring Vital Signs: Procedure Monitoring Vital Signs Temperature 97.6 F 08/20/18 06:17 Pulse Rate 87 08/20/18 06:17 Respiratory Rate 18 08/20/18 06:17 Blood Pressure 179/115 H 08/20/18 06:17 O2 Sat by Pulse Oximetry (%) 97 08/20/18 06:17 <Xena Meyer - Last Filed: 08/20/18 08:27> - Procedure Monitoring Vital Signs: Procedure Monitoring Vital Signs Temperature 97.6 F 08/20/18 06:17 Pulse Rate 87 08/20/18 06:17 Respiratory Rate 18 08/20/18 06:17 Blood Pressure 179/115 H 08/20/18 06:17 O2 Sat by Pulse Oximetry (%) 97 08/20/18 06:17 <Sheba Wyatt - Last Filed: 08/22/18 09:32> ED Treatment Course - Medications Given in the ED: ED Medications Discontinued Medications Generic Name Dose Route Start Last Admin Trade Name Freq PRN Reason Stop Dose Admin Oxycodone/Acetaminophen 1 combo 08/20/18 07:56 08/20/18 08:14 Percocet 5/325 - PO 08/20/18 07:57 1 combo ONCE ONE Administration <Xena Meyer - Last Filed: 08/20/18 08:27> Medical Decision Making - Medical Decision Making 08/20/18 08:01 Ms Mansfield presents to the ER with a complaint of tooth pain S/p Left mandibular wisdom tooth eruption No fevers or chills No throat pain Will give pain meds Will give Abx (pcn allergic) - clindamycin Will discharge Pt to follow up with a dentist Search Terms: Sarah Mansfield, 1985 Search Date: 08/20/2018 08:01:12 AM The Drug Utilization Report below displays all of the controlled substance prescriptions, if any, that your patient has filled in the last twelve months. The information displayed on this report is compiled from pharmacy submissions to the Department, and accurately reflects the information as submitted by the pharmacies. This report was requested by: Sheba Wyatt | Reference #: [id number] There are no results for the search terms that you entered. 08/22/18 09:32 <Sheba Wyatt - Last Filed: 08/22/18 09:32> *DC/Admit/Observation/Transfer - Attestations Scribe Attestion: Documentation prepared by AMELIA Dubon, acting as regional medical director for Sheba Wyatt MD/DO. 08/20/18 08:28 <Xena Meyer - Last Filed: 08/20/18 08:27> - Discharge Dispostion Decision to Admit order: No <Sheba Wyatt - Last Filed: 08/22/18 09:32> Diagnosis at time of Disposition: Tooth pain - Discharge Dispostion Disposition: HOME Condition at time of disposition: Stable - Prescriptions Prescriptions: Clindamycin [Cleocin -] 300 mg PO TID #21 capsule Oxycodone HCl/Acetaminophen [Percocet 5-325 mg Tablet -] 1 tab PO Q8H PRN #10 tablet MDD 3 PRN Reason: Severe Pain - Referrals Referrals: Santiago Neal [Primary Care Provider] - - Patient Instructions Printed Discharge Instructions: DI for Impacted Tooth, DI for Dental Pain Additional Instructions: Thank you for coming in to the ER today Please be sure to follow up with a dentist If you can not find one, try going to the Dental Urgent Care There several that you can call (they may or may not take insurance) [address], [address], [address] Please return to the ER for fevers or chills, facial swelling Please follow up with your primary care physician - Post Discharge Activity Forms/Work/School Notes: Back to Work"
[2018-08-20 09:18] VITALS: BP 140/100
== END 2018-08-20 08:42 | disposition home or self-care (01) ==
LOC: JER 05:40
DX: K08.89 Other specified disorders of teeth and supporting structures (principal); I10 Essential (primary) hypertension; R51 Headache; Z88.0 Allergy status to penicillin
CPT/HCPCS: 99281-25

== ENCOUNTER 2019-04-20 22:27 | Emergency (ER) | payer OTHER ==
[2019-04-20 22:48] VITALS: BMI 40.9
--- NOTE | 2019-04-20 23:32 | PDOC ---
History of Present Illness - General Chief Complaint: Chest Pain Stated Complaint: CHEST PAIN Time Seen by Provider: 04/20/19 23:31 History Source: Patient Exam Limitations: No Limitations - History of Present Illness Initial Comments: 33 year old female with PMH HTN, COPD, nicotine use, obesity presented to ED for right arm pain/swelling radiating to her right chest since this AM. Pt denied shortness of breath, MACKAY, palpitations, fever, cough, lightheadeness, syncope, vomiting. Pt reported she believes her bilateral lower extremities are swollen, L>R. She believes that her right upper extremity is swollen. Pt denied recent travel>4 hours, bedrest, Hx DVT/PE, malignancy <6 months, surgery<4 weeks , hormone use, OCP use, heavy lifting, fall, injury. Allergies: PCN ROS General: admitted to generalized weakness. denied fever, chills. HEENT: denied sore throat, rhinorrhea, ear pain. Cardiovascular: admitted to chest pain. denied palpitations, syncope, diaphoresis. Respiratory: denied shortness of breath, cough, sputum production, hemoptysis. Gastrointestinal: denied abdominal pain, nausea, vomiting, diarrhea, constipation, blood in stool. Genitourinary: denied dysuria, increased urinary frequency, hematuria, urinary incontinence, flank pain. Back: denied back pain. Musculoskeletal: Admitted to bilateral lower extremity swelling, right upper extremity swelling. denied joint pain, muscle pain. Neurological: denied headache, dizziness, numbness, tingling, weakness. Integumentary: denied rash, laceration, abrasion. Hematologic/Lymphatic: denied bruising or bleeding. PE Constitutional: Well-nourished, Well-developed, appearing stated age. HEENT: head is normocephalic, atraumatic. EOMI. PERRLA. no posterior pharyngeal erythema.no tonsillar swelling or exudates bilaterally. uvula midline. no peritonsillar swelling, tenderness or abscess. no jaw tenderness or misalignment. Neck: supple. Full ROM. Cardiovascular: regular heart rhythm. no murmurs. no pericardial friction rub. Chest: no rash, tenderness to palpation of right chest. Back: no rash, tenderness to palpation of trapezius. Respiratory: clear to auscultation bilaterally. no crackles, rhonchi or wheezing. no stridor. Gastrointestinal: soft, nontender. normal bowel sounds. no rebound, guarding, masses. Extremities: peripheral pulses intact. no lower extremity edema. Neurological: CN 2-12 grossly intact. moves all four extremities. Psych: awake, alert, oriented x3. follows commands. answers questions appropriately. Past History - Past Medical History Allergies/Adverse Reactions: Allergies Allergy/AdvReac Type Severity Reaction Status Date / Time Penicillins AdvReac Severe Rash Verified 04/20/19 22:43 Home Medications: Ambulatory Orders Amlodipine Besylate 10 mg PO DAILY 01/28/17 Hydrochlorothiazide [Hctz -] 0 mg PO DAILY 01/28/17 Cyclobenzaprine HCl [Flexeril -] 5 mg PO TID PRN #21 tablet 04/10/17 Naproxen [Naprosyn -] 500 mg PO BID #21 tablet 04/10/17 Clindamycin [Cleocin -] 300 mg PO TID #21 capsule 08/20/18 Oxycodone HCl/Acetaminophen [Percocet 5-325 mg Tablet -] 1 tab PO Q8H PRN #10 tablet MDD 3 08/20/18 Asthma: Yes (COPD) COPD: No HTN: Yes - Immunization History Immunization Up to Date: Yes - Suicide/Smoking/Psychosocial Hx Smoking Status: Yes Smoking History: Current every day smoker Have you smoked in the past 12 months: Yes Number of Cigarettes Smoked Daily: 4 Information on smoking cessation initiated: No 'Breaking Loose' booklet given: 01/28/17 Hx Alcohol Use: No Drug/Substance Use Hx: No Substance Use Type: None *Physical Exam - Vital Signs Last Vital Signs Temp Pulse Resp BP Pulse Ox 93 H 18 187/114 H 99 04/20/19 22:44 04/20/19 22:44 04/20/19 22:44 04/20/19 22:44 ED Treatment Course - LABORATORY CBC & Chemistry Diagram: 04/21/19 00:10 04/21/19 00:10 Medical Decision Making - Medical Decision Making 33 year old female with above PMH presented to ED for chest pain radiating from the right arm associated with bilateral LE swelling (L>R), right arm swelling. Initial Vital Signs Pulse Resp BP Pulse Ox 93 H 18 187/114 H 99 04/20/19 22:44 04/20/19 22:44 04/20/19 22:44 04/20/19 22:44 No tachycardia. No tachypnea. Hyeprtensive. No hypoxia on room air. Labs ordered: CBC, CMP, troponin, BNP, serum Imaging ordered: left LE duplex, right LE duplex, right UE duplex, CXR Medications ordered: normal saline bolus 1000 cc once, tylenol IV, ASA 162 mg [place] [id number]: rate 88, regular rhythm, normal axis, normal intervals, no acute ST changes. 04/21/19 01:11 CXR my view: no infiltrate. sharp costophrenic angles. no pulmonary vascular congestion. -Pending official report CBC WBC 10.9 K/mm3 (4.0-10.0) H 04/21/19 00:10 RBC 4.49 M/mm3 (3.60-5.2) 04/21/19 00:10 Hgb 12.3 GM/dL (10.7-15.3) 04/21/19 00:10 Hct 38.0 % (32.4-45.2) 04/21/19 00:10 MCV 84.6 fl (80-96) 04/21/19 00:10 MCH 27.4 pg (25.7-33.7) 04/21/19 00:10 MCHC 32.4 g/dl (32.0-36.0) 04/21/19 00:10 RDW 14.1 % (11.6-15.6) 04/21/19 00:10 Plt Count 282 K/MM3 (134-434) 04/21/19 00:10 MPV 9.4 fl (7.5-11.1) 04/21/19 00:10 Absolute Neuts (auto) 6.4 K/mm3 (1.5-8.0) 04/21/19 00:10 Neutrophils % 58.7 % (42.8-82.8) 04/21/19 00:10 Lymphocytes % 32.3 % (8-40) D 04/21/19 00:10 Monocytes % 6.1 % (3.8-10.2) 04/21/19 00:10 Eosinophils % 2.0 % (0-4.5) 04/21/19 00:10 Basophils % 0.9 % (0-2.0) 04/21/19 00:10 Nucleated RBC % 0 % (0-0) 04/21/19 00:10 Borderline leukocytosis. No left shift. No anemia. 04/21/19 01:36 CMP Sodium 143 mmol/L (136-145) 04/21/19 00:10 Potassium 3.7 mmol/L (3.5-5.1) 04/21/19 00:10 Chloride 108 mmol/L (98-107) H 04/21/19 00:10 Carbon Dioxide 25 mmol/L (21-32) 04/21/19 00:10 Anion Gap 11 MMOL/L (8-16) 04/21/19 00:10 BUN 15.2 mg/dL (7-18) 04/21/19 00:10 Creatinine 0.7 mg/dL (0.55-1.3) 04/21/19 00:10 Est GFR (CKD-EPI)AfAm 130.10 04/21/19 00:10 Est GFR (CKD-EPI)NonAf 112.25 04/21/19 00:10 Random Glucose 102 mg/dL (74-106) 04/21/19 00:10 Calcium 8.8 mg/dL (8.5-10.1) 04/21/19 00:10 Total Bilirubin 0.1 mg/dL (0.2-1) L 04/21/19 00:10 AST 11 U/L (15-37) L 04/21/19 00:10 ALT 21 U/L (13-61) 04/21/19 00:10 Alkaline Phosphatase 94 U/L (45-117) 04/21/19 00:10 Troponin I < 0.02 ng/ml (0.00-0.05) 04/21/19 00:10 B-Natriuretic Peptide 95.8 pg/ml (5-125) 04/21/19 00:10 Total Protein 6.9 g/dl (6.4-8.2) 04/21/19 00:10 Albumin 3.4 g/dl (3.4-5.0) 04/21/19 00:10 Serum , Qual Negative 04/21/19 00:10 No electrolyte abnormalities. No NEVILLE. No transam initis. Troponin undetedctable. BNP not elevated. Serum negative. 04/21/19 02:39 US imaging negative for DVT to all three extremities. Pt reported pain improvement. Pt informed of results and advised to F/U with PCP promptly. Pt discharged. *DC/Admit/Observation/Transfer Diagnosis at time of Disposition: Arm pain, Chest pain - Discharge Dispostion Disposition: HOME Condition at time of disposition: Improved Decision to Admit order: No - Referrals Referrals: Santiago Neal MD [Primary Care Provider] - - Patient Instructions Additional Instructions: Take ibuprofen over the counter for pain. Take as advised on label. Follow up with your primary care doctor within 3 days. Your care is not complete until you follow up. Return to the Emergency Department for chest pain, shortness of breath, palpitations, coughing up blood, lightheadedness, fever, vomiting, or any other new, worsening or concerning symptoms. - Post Discharge Activity Forms/Work/School Notes: Back to Work
[2019-04-20] MEDS ORDERED: ASPIRIN 81 MG CHEWABLE TABLETS PO ONE (23:53)
[2019-04-20] MEDS ORDERED: SODIUM CHLORIDE 1,000 ML IV STA (23:53)
[2019-04-20] MEDS ORDERED: ACETAMINOPHEN 1000 MG/100 ML VIAL (NON FORMULARY) IVPB ONE (23:53)
[2019-04-21] MEDS ORDERED: ASPIRIN 81 MG CHEWABLE TABLETS ONE (00:23)
[2019-04-21] MEDS ORDERED: ACETAMINOPHEN INJECTION 100 ML IVPB ONE (00:23)
[2019-04-21 00:40] LABS: BASO % 0.9 % (0-2.0); HEMOGLOBIN 12.3 GM/dL (10.7-15.3); LYMPH % 32.3 % (8-40); MCH 27.4 pg (25.7-33.7); MCHC 32.4 g/dl (32.0-36.0); MEAN CELL VOLUME 84.6 fl (80-96); MEAN PLT VOLUME 9.4 fl (7.5-11.1); MONO % 6.1 % (3.8-10.2); NEUT % 58.7 % (42.8-82.8); PLATELET COUNT 282 K/MM3 (134-434); RBC 4.49 M/mm3 (3.60-5.2); RDW 14.1 % (11.6-15.6); WHITE BLOOD COUNT 10.9 K/mm3 (4.0-10.0)
[2019-04-21 01:04] LABS: ALBUMIN 3.4 g/dl (3.4-5.0); BILIRUBIN,TOTAL 0.1 mg/dL (0.2-1); BLOOD UREA NITROGEN 15.2 mg/dL (7-18); CALCIUM 8.8 mg/dL (8.5-10.1); CREATININE 0.7 mg/dL (0.55-1.3); POTASSIUM 3.7 mmol/L (3.5-5.1); TOT PROT 6.9 g/dl (6.4-8.2)
--- NOTE | 2019-04-21 01:13 | PDOC ---
Attending Attestation - Resident Resident Name: Citlali Berrios - ED Attending Attestation I have performed the following: I have examined & evaluated the patient, The case was reviewed & discussed with the resident, I agree w/resident's findings & plan, Exceptions are as noted - HPI HPI: 04/21/19 01:12 33-year-old female has complaint of right sided arm tingling, numbness and swelling and lower extremity swelling that started today - Physicial Exam PE: 04/21/19 02:[address] Berrios's physical exam - Medical Decision Making 04/21/19 02:40 her chemistries and CBC. They're unremarkable Duplex Doppler of her right upper extremity is negative for any DVT. Duplex Dopplers of her lower extremities, both right and left leg are negative for any deep vein thrombosis pt d/c home
[2019-04-21 01:15] LABS: INR 0.97 (0.83-1.09); PROTHROMBIN TIME (PATIENT) 11.4 SEC (9.7-13.0)
[2019-04-21] MEDS ORDERED: IBUPROFEN 600 MG TABLET (FP) PO ONE ×2 (01:46→01:54)
[2019-04-21 03:12] VITALS: BP 161/90; PULSE 84; TEMP 97.7
--- NOTE | 2019-04-21 10:50 | EKG ---
Test Reason : Blood Pressure : / mmHG Vent. Rate : 088 BPM Atrial Rate : 088 BPM P-R Int : 168 ms QRS Dur : 084 ms QT Int : 372 ms P-R-T Axes : 024 049 011 degrees QTc Int : 450 ms NORMAL SINUS RHYTHM NORMAL ECG WHEN COMPARED WITH ECG OF 14-JAN-2018 18:43, NO SIGNIFICANT CHANGE WAS FOUND Confirmed by Albert Hernandez MD ([id number]) on 04/21/2019 10:49:45 AM Referred By: Confirmed By:Albert Hernandez MD
== END 2019-04-21 03:15 | disposition home or self-care (01) ==
LOC: JER 22:27
PROC: 3E033NZ Introduction of Analgesics, Hypnotics, Sedatives into Peripheral Vein, Percutaneous Approach (ICD-10-PCS; principal; 2019-04-20)
DX: M79.601 Pain in right arm (principal); R22.43 Localized swelling, mass and lump, lower limb, bilateral; R07.9 Chest pain, unspecified
CPT/HCPCS: 36415; 71046-TC-FY; 80053; 83880; 84484; 84703; 85025; 85610; 85730; 93005; 93010; 93970-TC; 93971; 96374; 99283-25; J0131; J7030

== ENCOUNTER 2021-06-25 08:11 | Emergency (ER) | payer OTHER ==
[2021-06-25] MEDS ORDERED: ACETAMINOPHEN 1000 MG/100 ML VIAL IVPB ONE (09:08)
[2021-06-25] MEDS ORDERED: LACTATED RINGERS SOLUTION 1,000 ML/1,000 ML INFUS.BAG IV SCH ×2 (09:15→18:15)
[2021-06-25] MEDS ORDERED: ACETAMINOPHEN INJECTION 100 ML IVPB ONE (09:16)
[2021-06-25 09:29] LABS: HEMATOCRIT 40.6 % (32.4-45.2); HEMOGLOBIN 13.5 GM/dL (10.7-15.3); MCHC 33.3 g/dl (32.0-36.0); MEAN CELL VOLUME 84.2 fl (80-96); MEAN PLT VOLUME 8.8 fl (7.5-11.1); PLATELET COUNT 343 10^3/uL (134-434); RBC 4.82 M/mm3 (3.60-5.2); RDW 14.6 % (11.6-15.6); WHITE BLOOD COUNT 15.8 K/mm3 (4.0-10.0)
[2021-06-25 09:35] LABS: EPI CELLS 10 /uL (0-25.1); HCG,QUALITATIVE URINE Negative; HYALINE CASTS 0 /uL (0-3.1); PH,URINE 5.5 (5.0-8.0); URINE APPEARANCE CLEAR; URINE BACTERIA 120 /uL (0-1359); URINE BILIRUBIN NEGATIVE (NEGATIVE); URINE COLOR YELLOW; URINE GLUCOSE (UA) NEGATIVE (NEGATIVE); URINE KETONE 1+ (NEGATIVE); URINE LEUK ESTERASE NEGATIVE (NEGATIVE); URINE NITRITE NEGATIVE (NEGATIVE); URINE PROTEIN 1+ (NEGATIVE); URINE RBC 218 /uL (0-23.9); URINE UROBILINOGEN 0.2 mg/dL (0.2-1.0); URINE WBC 3 /uL (0-25.8)
[2021-06-25 09:43] LABS: CHLORIDE 107 mmol/L (98-107); SODIUM 140 mmol/L (136-145)
[2021-06-25 09:45] LABS: ANION GAP 9 MMOL/L (8-16); BLOOD UREA NITROGEN 6.5 mg/dL (7-18); CALCIUM 8.9 mg/dL (8.5-10.1); CO2 24 mmol/L (21-32); GLUCOSE,RANDOM 103 mg/dL (74-106); MAGNESIUM 2.2 mg/dL (1.8-2.4)
[2021-06-25 09:48] LABS: CREATININE 0.6 mg/dL (0.55-1.3); SGOT/AST 13 U/L (15-37); SGPT/ALT 24 U/L (13-61)
[2021-06-25 09:50] LABS: BILIRUBIN,TOTAL 0.2 mg/dL (0.2-1)
[2021-06-25 09:51] LABS: ALK PHOS 112 U/L (45-117)
[2021-06-25 09:55] VITALS: BMI 33.8
[2021-06-25 09:59] LABS: LACTIC ACID 3.1 mmol/L (0.4-2.0)
[2021-06-25] MEDS ORDERED: ONDANSETRON 4 MG/2 ML VIAL IVPUSH ONE (10:09)
[2021-06-25] MEDS ORDERED: ONDANSETRON 4 MG/2 ML VIAL ONE (10:12)
[2021-06-25] MEDS ORDERED: KETOROLAC TROMETHAMINE 15 MG/ML VIAL ONE (10:21)
[2021-06-25] MEDS ORDERED: KETOROLAC TROMETHAMINE 15 MG/ML VIAL IVPUSH ONE (10:21)
[2021-06-25] MEDS ORDERED: LACTATED RINGERS SOLUTION 1000 ML INFUS.BAG IV ONE (10:31)
[2021-06-25 11:17] LABS: ANISOCYTOSIS 0; HELMET CELLS 0; HOWELL-JOLLY BODIES 0; MACROCYTOSIS 0; OVALOCYTE 0; PLATELET ESTIMATE NORMAL; ROULEAU 0; SICKELED CELLS 0; TARGET CELLS 0; TEAR DROP CELLS 0; TOXIC GRANULATION 0
[2021-06-25 12:05] LABS: LIPASE 87 U/L (73-393)
[2021-06-25] MEDS ORDERED: morphine CARPU-JECT 2 MG/1 ML DISP.SYRIN IVPUSH ONE ×2 (12:16→17:16)
[2021-06-25] MEDS ORDERED: morphine SULFATE 4 MG/ML VIAL ONE ×2 (12:51→17:34)
[2021-06-25 13:35] LABS: TOTAL IRON BINDING CAPACITY 368 ug/dL (250-450)
[2021-06-25 13:41] LABS: RETICULOCYTES 1.75 % (0.5-1.5)
[2021-06-25 13:43] LABS: IRON SERUM 29 ug/dL (50-175)
[2021-06-25 13:51] LABS: LDH 310 U/L (84-246)
[2021-06-25 13:59] LABS: URINE AMPHETAMINES NEGATIVE (NEGATIVE); URINE BARBITURATES NEGATIVE (NEGATIVE)
[2021-06-25 14:00] LABS: METHADONE, UR NEGATIVE (NEGATIVE); PHENCYCLIDINE,URINE NEGATIVE (NEGATIVE)
[2021-06-25 14:04] LABS: COCAINE, UR NEGATIVE (NEGATIVE); OPIATES, URI NEGATIVE (NEGATIVE); URINE BENZODIAZEPINES NEGATIVE (NEGATIVE)
[2021-06-25] MEDS ORDERED: amLODIPine BESYLATE 10 MG TABLET (FP) PO ONE (17:46)
[2021-06-25 17:53] VITALS: TEMP 98.7
[2021-06-25] MEDS ORDERED: amLODIPine BESYLATE 5 MG TABLET (FP) ONE (17:59)
[2021-06-25] MEDS ORDERED: SODIUM CHLORIDE 0.9% 500 ML INFUS.BAG IV ONE (18:07)
[2021-06-25 21:52] VITALS: BP 154/98; PULSE 88
== END 2021-06-25 21:55 | disposition short-term general hospital (02) ==
LOC: JER 08:11
PROC: 3E033NZ Introduction of Analgesics, Hypnotics, Sedatives into Peripheral Vein, Percutaneous Approach (ICD-10-PCS; principal; 2021-06-25)
PROC: 3E033GC Introduction of Other Therapeutic Substance into Peripheral Vein, Percutaneous Approach (ICD-10-PCS; 2021-06-25)
PROC: 3E0333Z Introduction of Anti-inflammatory into Peripheral Vein, Percutaneous Approach (ICD-10-PCS; 2021-06-25)
PROC: 3E033GC Introduction of Other Therapeutic Substance into Peripheral Vein, Percutaneous Approach (ICD-10-PCS; 2021-06-25)
PROC: 3E033GC Introduction of Other Therapeutic Substance into Peripheral Vein, Percutaneous Approach (ICD-10-PCS; 2021-06-25)
DX: D73.5 Infarction of spleen (principal); R10.32 Left lower quadrant pain; R11.0 Nausea
CPT/HCPCS: 36415; 74177-TC; 80053; 80307; 81003; 82550; 82553; 82728; 83010; 83540; 83550; 83605; 83615; 83690; 83735; 84484; 84703; 85025; 85045; 87086; 93005; 93010; 99285-25; C9803; J0131; Q9967; U0003; U0005

== ENCOUNTER 2021-09-12 17:33 | Inpatient (IN) | payer OTHER ==
[2021-09-12 17:41] VITALS: BMI 34.3
[2021-09-12] MEDS ORDERED: ASPIRIN 81 MG CHEWABLE TABLETS PO ONE ×2 (18:56→20:57)
[2021-09-12] MEDS ORDERED: ASPIRIN 81 MG CHEWABLE TABLETS ONE ×2 (19:29→21:24)
[2021-09-12 19:45] LABS: BASO % 0.8 % (0-2.0); EOS % 1.5 % (0-4.5); HEMATOCRIT 42.3 % (32.4-45.2); HEMOGLOBIN 13.8 GM/dL (10.7-15.3); LYMPH % 27.9 % (8-40); MCH 27.1 pg (25.7-33.7); MCHC 32.7 g/dl (32.0-36.0); MEAN CELL VOLUME 82.8 fl (80-96); MONO % 6.4 % (3.8-10.2); NEUT % 63.4 % (42.8-82.8); PLATELET COUNT 411 10^3/uL (134-434); RDW 14.7 % (11.6-15.6); WHITE BLOOD COUNT 13.1 K/mm3 (4.0-10.0)
[2021-09-12 20:04] LABS: INR 1.36 (0.83-1.09); PROTHROMBIN TIME (PATIENT) 15.7 SEC (9.7-13.0)
[2021-09-12 20:07] LABS: ACTIVATED PTT 42.3 SECONDS (25.2-36.5); ALBUMIN 3.7 g/dl (3.4-5.0); BLOOD UREA NITROGEN 8.6 mg/dL (7-18); CALCIUM 8.9 mg/dL (8.5-10.1); MAGNESIUM 2.1 mg/dL (1.8-2.4)
[2021-09-12 20:10] LABS: CREATININE 0.7 mg/dL (0.55-1.3)
[2021-09-12 20:12] LABS: BILIRUBIN,TOTAL 0.3 mg/dL (0.2-1); TOT PROT 7.4 g/dl (6.4-8.2)
[2021-09-12] MEDS ORDERED: ATORVASTATIN CA 80 MG TABLET (FP) PO ONE (20:57)
[2021-09-12] MEDS ORDERED: ATORVASTATIN CA 80 MG TABLET (FP) ONE (21:24)
[2021-09-12] MEDS ORDERED: HEPARIN NA (PORCINE) 5,000 UNITS/ML 1ML VIAL IVPUSH PRN ×2 (22:25)
[2021-09-12] MEDS ORDERED: HEPARIN INFUSION - 25,000 UNITS/500 ML INFUS.BAG IVPB SCH (22:30)
[2021-09-12 22:38] LABS: N-TERMINAL BNP 121.7 pg/ml (5-125)
[2021-09-12] MEDS ORDERED: HEPARIN NA (PORCINE) 5,000 UNITS/ML 1ML VIAL ONE (22:41)
[2021-09-12] MEDS ORDERED: HEPARIN INFUSION - 25,000 UNITS/500 ML INFUS.BAG IVPB ONE (22:41)
[2021-09-12] MEDS: HEPARIN INFUSION - 25,000 UNITS/500 ML INFUS.BAG IVPB SCH (22:52)
[2021-09-13] MEDS ORDERED: ALBUTEROL SO4 2.5/IPRATROPIUM 0.5 INH SOL 3 ML VIAL.NEB. NEB PRN (05:53)
[2021-09-13 07:28] LABS: BASO % 0.9 % (0-2.0); HEMATOCRIT 37.7 % (32.4-45.2); HEMOGLOBIN 12.4 GM/dL (10.7-15.3); LYMPH % 27.2 % (8-40); MCH 27.3 pg (25.7-33.7); MCHC 32.8 g/dl (32.0-36.0); MEAN CELL VOLUME 83.2 fl (80-96); MEAN PLT VOLUME 8.3 fl (7.5-11.1); MONO % 6.8 % (3.8-10.2); NEUT % 63.1 % (42.8-82.8); PLATELET COUNT 357 10^3/uL (134-434); RBC 4.53 M/mm3 (3.60-5.2); WHITE BLOOD COUNT 10.8 K/mm3 (4.0-10.0)
[2021-09-13 09:37] LABS: ALBUMIN 3.2 g/dl (3.4-5.0); ALK PHOS 93 U/L (45-117); ANION GAP 7 MMOL/L (8-16); BILIRUBIN,TOTAL 0.5 mg/dL (0.2-1); BLOOD UREA NITROGEN 7.7 mg/dL (7-18); CALCIUM 8.7 mg/dL (8.5-10.1); CHLORIDE 106 mmol/L (98-107); CO2 26 mmol/L (21-32); CREATININE 0.6 mg/dL (0.55-1.3); GLUCOSE,RANDOM 84 mg/dL (74-106); SGOT/AST 13 U/L (15-37); SGPT/ALT 19 U/L (13-61); SODIUM 139 mmol/L (136-145); TOT PROT 6.4 g/dl (6.4-8.2)
[2021-09-13] MEDS ORDERED: PATIENT'S OWN MEDICATION (NON-FORMULARY) (Amlodipine Besylate/Benazepril [Lotrel 10-20 Mg PO SCH (10:00)
[2021-09-13] MEDS: amLODIPine BESYLATE 10 MG TABLET (FP) PO SCH (10:34)
[2021-09-13] MEDS: LISINOPRIL 20 MG TABLET PO SCH (10:34)
[2021-09-13] MEDS: LABETALOL HCL 200 MG TABLET (FP) PO SCH ×2 (10:34→21:02)
[2021-09-13] MEDS: ASPIRIN 81 MG CHEWABLE TABLETS PO SCH (10:36)
[2021-09-13] MEDS ORDERED: CLOPIDOGREL BISULFATE 300 MG TABLET PO ONE (10:45)
[2021-09-13] MEDS ORDERED: ACETAMINOPHEN 325 MG TABLET (FP) PO PRN (18:35)
[2021-09-13] MEDS: DOCUSATE SODIUM 100 MG CAPSULE (FP) PO SCH (21:02)
[2021-09-13] MEDS: ATORVASTATIN CA 80 MG TABLET (FP) PO SCH (21:02)
[2021-09-14] MEDS: HEPARIN INFUSION - 25,000 UNITS/500 ML INFUS.BAG IVPB SCH ×2 (01:14→02:17)
[2021-09-14 08:23] LABS: MCH 26.6 pg (25.7-33.7); MCHC 31.7 g/dl (32.0-36.0); MEAN PLT VOLUME 8.4 fl (7.5-11.1); PLATELET COUNT 354 10^3/uL (134-434); RBC 4.53 M/mm3 (3.60-5.2); RDW 14.8 % (11.6-15.6); WHITE BLOOD COUNT 10.2 K/mm3 (4.0-10.0)
[2021-09-14 08:43] LABS: CALCIUM 8.7 mg/dL (8.5-10.1)
[2021-09-14 08:44] LABS: ALBUMIN 3.2 g/dl (3.4-5.0); BLOOD UREA NITROGEN 15.4 mg/dL (7-18)
[2021-09-14 08:47] LABS: CREATININE 0.8 mg/dL (0.55-1.3)
[2021-09-14 08:48] LABS: TOT PROT 6.3 g/dl (6.4-8.2)
[2021-09-14 08:49] LABS: BILIRUBIN,TOTAL 0.3 mg/dL (0.2-1)
[2021-09-14] MEDS: LISINOPRIL 20 MG TABLET PO SCH (10:35)
[2021-09-14] MEDS: CLOPIDOGREL BISULFATE 75 MG TABLET (FP) PO SCH (10:35)
[2021-09-14] MEDS: amLODIPine BESYLATE 10 MG TABLET (FP) PO SCH (10:35)
[2021-09-14] MEDS: LABETALOL HCL 200 MG TABLET (FP) PO SCH ×2 (10:35→21:31)
[2021-09-14] MEDS: ASPIRIN 81 MG CHEWABLE TABLETS PO SCH (10:35)
[2021-09-14] MEDS: ATORVASTATIN CA 80 MG TABLET (FP) PO SCH (21:31)
[2021-09-14] MEDS: DOCUSATE SODIUM 100 MG CAPSULE (FP) PO SCH (21:31)
[2021-09-15] MEDS: HEPARIN INFUSION - 25,000 UNITS/500 ML INFUS.BAG IVPB SCH (06:39)
[2021-09-15] MEDS: ASPIRIN 81 MG CHEWABLE TABLETS PO SCH (09:24)
[2021-09-15] MEDS: amLODIPine BESYLATE 10 MG TABLET (FP) PO SCH (09:25)
[2021-09-15] MEDS: LABETALOL HCL 200 MG TABLET (FP) PO SCH (09:25)
[2021-09-15] MEDS: LISINOPRIL 20 MG TABLET PO SCH (09:25)
[2021-09-15] MEDS: CLOPIDOGREL BISULFATE 75 MG TABLET (FP) PO SCH (09:25)
[2021-09-15] MEDS ORDERED: FAMOTIDINE 10 MG TABLET PO SCH (13:30)
[2021-09-15 18:20] VITALS: BP 125/83; PULSE 74; TEMP 98
== END 2021-09-15 15:37 | disposition short-term general hospital (02) | DRG 190 ==
LOC: JER 17:33 → JERBED 21:23 → J2W 23:43
PROVIDERS: ADMIT Internal Medicine; ATTEND Internal Medicine
DX: I21.4 Non-ST elevation (NSTEMI) myocardial infarction (principal); D73.5 Infarction of spleen; E66.9 Obesity, unspecified; Z68.34 Body mass index [BMI] 34.0-34.9, adult; F17.200 Nicotine dependence, unspecified, uncomplicated; I10 Essential (primary) hypertension; J44.9 Chronic obstructive pulmonary disease, unspecified; E78.5 Hyperlipidemia, unspecified
CPT/HCPCS: 36415; 71046-TC-FY; 71275-TC; 80053; 80061; 82550; 83036; 83690; 83735; 83880; 84443; 84484; 84703; 85025; 85027; 85610; 85730; 86769; 93005; 93010; 93306-TC; 99285-25; C9803; J1644; Q9967; U0003; U0005

== ENCOUNTER 2022-03-20 00:46 | Emergency (ER) | payer OTHER ==
[2022-03-20 01:32] VITALS: BP 146/94; PULSE 85; RESP 17; TEMP 98.3; BMI 33.3
[2022-03-20] MEDS ORDERED: DEXAMETHASONE SOD PHOSPHATE 10 MG/1 ML VIAL IM ONE (01:48)
[2022-03-20] MEDS ORDERED: DEXAMETHASONE SOD PHOSPHATE 10 MG/1 ML VIAL ONE (02:10)
== END 2022-03-20 03:03 | disposition home or self-care (01) ==
LOC: JER 00:46
PROC: 3E0233Z Introduction of Anti-inflammatory into Muscle, Percutaneous Approach (ICD-10-PCS; principal; 2022-03-20)
DX: S80.861A Insect bite (nonvenomous), right lower leg, initial encounter (principal); S80.862A Insect bite (nonvenomous), left lower leg, initial encounter; W57.XXXA Bitten or stung by nonvenomous insect and other nonvenomous arthropods, initial encounter
CPT/HCPCS: 99284-25; J1100

== ENCOUNTER 2022-11-20 18:15 | Observation (INO) | payer OTHER ==
[2022-11-20 18:34] VITALS: BMI 37.0
[2022-11-20 20:41] LABS: BASO % 1.2 % (0-2.0); EOS % 1.8 % (0-4.5); HEMATOCRIT 35.4 % (32.4-45.2); HEMOGLOBIN 11.6 GM/dL (10.7-15.3); LYMPH % 31.1 % (8-40); MCH 26.5 pg (25.7-33.7); MCHC 32.7 g/dl (32.0-36.0); MONO % 7.7 % (3.8-10.2); NEUT % 58.2 % (42.8-82.8); PLATELET COUNT 342 10^3/uL (134-434); RBC 4.38 M/mm3 (3.60-5.2); RDW 16.6 % (11.6-15.6); WHITE BLOOD COUNT 12.2 K/mm3 (4.0-10.0)
[2022-11-20] MEDS ORDERED: diazePAM CARPU-JECT 10 MG/2 ML DISP.SYRIN IVPUSH ONE (21:02)
[2022-11-20] MEDS ORDERED: LIDOCAINE HCL 1%, 10 MG/ML (50 mL VIAL) SQ ONE (21:03)
[2022-11-20] MEDS ORDERED: diazePAM CARPU-JECT 10 MG/2 ML DISP.SYRIN ONE (21:04)
[2022-11-20] MEDS ORDERED: LIDOCAINE HCL 1%, 10 MG/ML (10ML VIAL) MDV ONE (21:04)
[2022-11-20 21:10] LABS: BLOOD UREA NITROGEN 13.6 mg/dL (7-18); CALCIUM 8.6 mg/dL (8.5-10.1)
[2022-11-20 21:11] LABS: ALBUMIN 3.3 g/dl (3.4-5.0)
[2022-11-20 21:13] LABS: CREATININE 0.8 mg/dL (0.55-1.3)
[2022-11-20 21:15] LABS: BILIRUBIN,TOTAL 0.2 mg/dL (0.2-1); TOT PROT 6.8 g/dl (6.4-8.2)
[2022-11-20] MEDS ORDERED: ACETAMINOPHEN 1000 MG/100 ML BAG IVPB ONE (22:15)
[2022-11-20] MEDS ORDERED: ACETAMINOPHEN INJECTION 100 ML IVPB ONE (22:48)
[2022-11-20] MEDS ORDERED: DEXTROSE 5%-0.45% SALINE 1,000 ML IV SCH (23:45)
[2022-11-20] MEDS ORDERED: ALBUTEROL SO4 0.083% IH SOL 2.5 MG/3 ML VIAL.NEB. NEB PRN (23:50)
[2022-11-21] MEDS ORDERED: ALBUTEROL SO4 HFA INHALER IH PRN (05:21)
[2022-11-21 08:59] LABS: BASO % 0.8 % (0-2.0); EOS % 1.5 % (0-4.5); HEMATOCRIT 34.1 % (32.4-45.2); HEMOGLOBIN 11.2 GM/dL (10.7-15.3); LYMPH % 25.4 % (8-40); MCH 26.2 pg (25.7-33.7); MCHC 32.9 g/dl (32.0-36.0); MEAN CELL VOLUME 79.7 fl (80-96); MEAN PLT VOLUME 8.3 fl (7.5-11.1); NEUT % 65.3 % (42.8-82.8); PLATELET COUNT 342 10^3/uL (134-434); RBC 4.28 M/mm3 (3.60-5.2); RDW 16.6 % (11.6-15.6); WHITE BLOOD COUNT 10.9 K/mm3 (4.0-10.0)
[2022-11-21 09:31] LABS: CALCIUM 8.6 mg/dL (8.5-10.1)
[2022-11-21 09:32] LABS: BLOOD UREA NITROGEN 10.5 mg/dL (7-18)
[2022-11-21 09:35] LABS: CREATININE 0.6 mg/dL (0.55-1.3)
[2022-11-21 09:36] LABS: BILIRUBIN,TOTAL 0.4 mg/dL (0.2-1); TOT PROT 6.3 g/dl (6.4-8.2)
[2022-11-21] MEDS: CARVEDILOL 12.5 MG TABLET (FP) PO SCH ×2 (10:07→21:46)
[2022-11-21] MEDS: amLODIPine BESYLATE 5 MG TABLET (FP) PO SCH (10:07)
[2022-11-22 06:57] VITALS: TEMP 98.2
[2022-11-22] MEDS: amLODIPine BESYLATE 5 MG TABLET (FP) PO SCH (09:28)
[2022-11-22] MEDS: CARVEDILOL 12.5 MG TABLET (FP) PO SCH (09:28)
[2022-11-22 11:12] VITALS: BP 141/79; PULSE 82; RESP 18
== END 2022-11-22 11:48 | disposition home or self-care (01) ==
LOC: JER 18:15 → JERBED 22:22 → J7W 11-21 04:21
PROVIDERS: ADMIT Internal Medicine; ATTEND Internal Medicine
PROC: 3E023GC Introduction of Other Therapeutic Substance into Muscle, Percutaneous Approach (ICD-10-PCS; principal; 2022-11-20)
PROC: 3E033NZ Introduction of Analgesics, Hypnotics, Sedatives into Peripheral Vein, Percutaneous Approach (ICD-10-PCS; 2022-11-20)
DX: I10 Essential (primary) hypertension (principal); D73.5 Infarction of spleen; I25.2 Old myocardial infarction; J45.909 Unspecified asthma, uncomplicated; E66.8 Other obesity; Z68.37 Body mass index [BMI] 37.0-37.9, adult; H53.8 Other visual disturbances; R51.9 Headache, unspecified; Z87.891 Personal history of nicotine dependence; Z88.0 Allergy status to penicillin
CPT/HCPCS: 0241U-QW; 36415; 70450-TC; 70551-TC; 80053; 85025; 86038; 93005; 93010; 96365; 96372; 96375; 99285-25; G0378

== ENCOUNTER 2022-12-28 20:37 | Emergency (ER) | payer OTHER ==
[2022-12-28 21:12] VITALS: BP 136/93; PULSE 110; RESP 18; TEMP 98.1; BMI 43.2
[2022-12-28] MEDS ORDERED: ACETAMINOPHEN 325 MG TABLET (FP) PO ONE (22:01)
[2022-12-28] MEDS ORDERED: ACETAMINOPHEN 325 MG TABLET (FP) ONE (22:16)
[2022-12-28 22:40] LABS: BASO % 0.5 % (0-2.0); EOS % 0.5 % (0-4.5); HEMATOCRIT 36.1 % (32.4-45.2); HEMOGLOBIN 11.7 GM/dL (10.7-15.3); LYMPH % 16.9 % (8-40); MCHC 32.4 g/dl (32.0-36.0); MEAN CELL VOLUME 80.4 fl (80-96); MEAN PLT VOLUME 8.2 fl (7.5-11.1); MONO % 7.3 % (3.8-10.2); NEUT % 74.8 % (42.8-82.8); PLATELET COUNT 337 10^3/uL (134-434); RBC 4.49 M/mm3 (3.60-5.2); RDW 16.4 % (11.6-15.6); WHITE BLOOD COUNT 15.9 K/mm3 (4.0-10.0)
[2022-12-28 22:53] LABS: INR 1.03 (0.83-1.09); PROTHROMBIN TIME (PATIENT) 11.9 SEC (9.7-13.0)
[2022-12-28 22:56] LABS: ACTIVATED PTT 30.9 SECONDS (25.2-36.5)
[2022-12-28 23:12] LABS: EPI CELLS >36 /uL (0-25.1); HYALINE CASTS 8 /uL (0-3.1); PH,URINE 5.5 (5.0-8.0); URINE APPEARANCE CLOUDY; URINE BACTERIA 1045 /uL (0-1359); URINE BILIRUBIN NEGATIVE (NEGATIVE); URINE COLOR DK YELLOW; URINE GLUCOSE (UA) NEGATIVE (NEGATIVE); URINE KETONE TRACE (NEGATIVE); URINE LEUK ESTERASE TRACE (NEGATIVE); URINE NITRITE NEGATIVE (NEGATIVE); URINE PROTEIN 2+ (NEGATIVE); URINE RBC 29 /uL (0-23.9); URINE WBC 63 /uL (0-25.8)
[2022-12-28 23:38] LABS: URINE CRYSTALS NONE SEEN /hpf
[2022-12-29 00:34] LABS: ALBUMIN 3.6 g/dl (3.4-5.0); BILIRUBIN,TOTAL 0.3 mg/dL (0.2-1); BLOOD UREA NITROGEN 8.2 mg/dL (7-18); CALCIUM 8.7 mg/dL (8.5-10.1); CREATININE 0.6 mg/dL (0.55-1.3); POTASSIUM 3.7 mmol/L (3.5-5.1)
[2022-12-29] MEDS ORDERED: SULFAMETHOXAZOLE/TRIMETHOPRIM 800MG/160MG D.S. TABLET PO ONE (00:47)
[2022-12-29] MEDS ORDERED: CEFPODOXIME PROXETIL 100 MG TABLET PO ONE ×2 (01:14→01:30)
== END 2022-12-29 01:21 | disposition home or self-care (01) ==
LOC: JER 20:37
DX: R10.2 Pelvic and perineal pain (principal); O23.41 Unspecified infection of urinary tract in pregnancy, first trimester; Z3A.01 Less than 8 weeks gestation of pregnancy
CPT/HCPCS: 36415; 76817-TC; 80053; 81003; 84702; 85025; 85610; 85730; 86850; 86900; 86901; 87086; 99285-25

== ENCOUNTER 2024-02-16 14:44 | Emergency (ER) | payer OTHER ==
[2024-02-16 14:52] VITALS: BP 165/99; PULSE 75; RESP 18; TEMP 98.7; BMI 37.0
[2024-02-16] MEDS ORDERED: DEXAMETHASONE SOD PHOSPHATE 10 MG/1 ML VIAL ONE (16:08)
[2024-02-16] MEDS: DEXAMETHASONE SOD PHOSPHATE 10 MG/1 ML VIAL IM ONE (16:08)
== END 2024-02-16 16:22 | disposition home or self-care (01) ==
LOC: JERFT 14:44
PROC: 3E023GC Introduction of Other Therapeutic Substance into Muscle, Percutaneous Approach (ICD-10-PCS; principal; 2024-02-16)
DX: M25.532 Pain in left wrist (principal); M65.4 Radial styloid tenosynovitis [de Quervain]; M79.645 Pain in left finger(s)
CPT/HCPCS: 99284-25; J1100

== ENCOUNTER 2024-04-19 11:26 | Observation (INO) | payer OTHER ==
[2024-04-19 11:48] VITALS: PULSE 75; TEMP 98.5; BMI 38.7
[2024-04-19] MEDS: ASPIRIN 81 MG CHEWABLE TABLETS PO ONE (12:10)
[2024-04-19] MEDS ORDERED: ASPIRIN 81 MG CHEWABLE TABLETS ONE (12:12)
[2024-04-19 12:54] LABS: BASO % 1.5 % (0-2.0); EOS % 1.4 % (0-4.5); HEMOGLOBIN 11.8 GM/dL (10.7-15.3); LYMPH % 22.8 % (8-40); MCH 25.5 pg (25.7-33.7); MCHC 31.8 g/dl (32.0-36.0); MEAN CELL VOLUME 80.2 fl (80-96); MEAN PLT VOLUME 8.5 fl (7.5-11.1); MONO % 5.3 % (3.8-10.2); PLATELET COUNT 398 10^3/uL (134-434); RBC 4.61 M/mm3 (3.60-5.2); RDW 15.5 % (11.6-15.6); WHITE BLOOD COUNT 7.9 K/mm3 (4.0-10.0)
[2024-04-19 12:59] LABS: INR 1.02 (0.83-1.09); PROTHROMBIN TIME (PATIENT) 11.7 SEC (9.7-13.0)
[2024-04-19 13:02] LABS: ACTIVATED PTT 34.1 SECONDS (25.2-36.5)
[2024-04-19 13:27] LABS: CALCIUM 8.8 mg/dL (8.5-10.1)
[2024-04-19 13:28] LABS: ALBUMIN 3.3 g/dl (3.4-5.0); BLOOD UREA NITROGEN 7.6 mg/dL (7-18)
[2024-04-19 13:31] LABS: CREATININE 0.6 mg/dL (0.55-1.3)
[2024-04-19 13:33] LABS: BILIRUBIN,TOTAL 0.4 mg/dL (0.2-1); TOT PROT 6.8 g/dl (6.4-8.2)
[2024-04-19 13:36] LABS: N-TERMINAL BNP 52.5 pg/ml (5-125)
[2024-04-19] MEDS ORDERED: amLODIPine BESYLATE 10 MG TABLET (FP) ONE (14:01)
[2024-04-19] MEDS: amLODIPine BESYLATE 10 MG TABLET (FP) PO ONE (14:06)
[2024-04-19 15:11] VITALS: BP 144/92; RESP 16
[2024-04-19 15:22] LABS: HIV INTERPRETATION NEGATIVE (NEGATIVE)
[2024-04-19] MEDS ORDERED: ALBUTEROL SO4 HFA INHALER IH PRN (16:14)
[2024-04-19] MEDS ORDERED: RIVAROXABAN 20 MG TABLET PO SCH (18:00)
[2024-04-19] MEDS ORDERED: CARVEDILOL 12.5 MG TABLET (FP) PO SCH (22:00)
[2024-04-20] MEDS ORDERED: amLODIPine BESYLATE 5 MG TABLET (FP) PO SCH (10:00)
== END 2024-04-19 17:54 | disposition home or self-care (01) ==
LOC: JER 11:26 → JERBED 15:09
PROVIDERS: ADMIT Internal Medicine; ATTEND Internal Medicine
DX: R07.9 Chest pain, unspecified (principal); I10 Essential (primary) hypertension; D68.9 Coagulation defect, unspecified; Z79.01 Long term (current) use of anticoagulants; J45.909 Unspecified asthma, uncomplicated; D73.5 Infarction of spleen; I25.2 Old myocardial infarction; Z88.0 Allergy status to penicillin
CPT/HCPCS: 0241U-QW; 36415; 71045-TC-FY; 80053; 83690; 83880; 84484; 84703; 85025; 85610; 85730; 86803; 87389; 93005; 93010; 99285-25; G0378